=== PATIENT | female | born 2000 | race American Indian/Alaskan Native ===

== ENCOUNTER 2019-07-15 01:50 | Emergency (ER) | payer BC ==
--- NOTE | 2019-07-15 02:25 | Emergency Department Report ---
ED Psych HPI - General Chief Complaint: Psych Stated Complaint: MH Time Seen by Provider: 07/15/19 02:17 Source: EMS Mode of arrival: Stretcher - History of Present Illness Initial Comments: 18 yo F presents to ED via EMS. Per ems, pt's mother stated pt has had uncontrollable behavior x 3 days. Pt taking to self and seeing things that are not there. Pt paranoid thinking someone is trying to kill her. When I ask pt why she is here in the ER, pt states, "They said I'm dying, right?" It is unclear if patient has a prior psychiatric diagnosis. Difficult to obtain hx from pt. Complaint: other (bizarre behavior, paranoia) -: days(s) (3) Quality: constant Improves With: none Worsens With: none Treatments Prior to Arrival: placed on mental he - Related Data Allergies Allergy/AdvReac Type Severity Reaction Status Date / Time No Known Allergies Allergy Unverified 07/15/19 03:45 ED Review of Systems ROS: Stated complaint: MH Other details as noted in HPI Comment: Unobtainable due to pts medical conditions Psychiatric: other (paranoia and bizarrhe behavior reported) ED Past Medical Hx - Past Medical History Previous Medical History?: No - Surgical History Past Surgical History?: No - Social History Smoking Status: Unknown if ever smoked ED Physical Exam - General Limitations: No Limitations General appearance: alert, in no apparent distress - Head Head exam: Present: atraumatic, normocephalic - Eye Eye exam: Present: normal appearance, PERRL, EOMI - ENT ENT exam: Present: mucous membranes moist - Neck Neck exam: Present: normal inspection - Respiratory Respiratory exam: Present: normal lung sounds bilaterally. Absent: respiratory distress - Cardiovascular Cardiovascular Exam: Present: normal rhythm, tachycardia - GI/Abdominal GI/Abdominal exam: Absent: distended - Extremities Exam Extremities exam: Present: normal inspection - Neurological Exam Neurological exam: Present: alert, CN II-XII intact. Absent: motor sensory deficit - Psychiatric Psychiatric exam: Present: manic, other (disorganized speech, ) - Skin Skin exam: Present: warm, dry, intact, normal color ED Course Vital Signs 07/15/19 07/15/19 07/15/19 02:09 02:14 02:15 Temperature 99.9 F H Pulse Rate 117 H Respiratory 18 Rate Blood Pressure 164/105 156/90 Blood Pressure [Left] O2 Sat by Pulse 99 99 100 Oximetry 07/15/19 07/15/19 07/15/19 02:18 02:25 02:30 Temperature Pulse Rate 129 H 108 H Respiratory 17 20 14 Rate Blood Pressure 156/90 Blood Pressure 156/90 [Left] O2 Sat by Pulse 98 99 99 Oximetry 07/15/19 07/15/19 07/15/19 02:45 03:00 03:16 Temperature Pulse Rate 126 H 124 H 152 H Respiratory 19 18 34 H Rate Blood Pressure 154/89 154/89 154/89 Blood Pressure [Left] O2 Sat by Pulse Oximetry 07/15/19 07/15/19 07/15/19 03:30 03:46 04:00 Temperature Pulse Rate 161 H 93 H 139 H Respiratory 15 32 H Rate Blood Pressure 154/89 154/89 154/89 Blood Pressure [Left] O2 Sat by Pulse 92 98 Oximetry 07/15/19 07/15/19 07/15/19 04:16 04:30 04:45 Temperature Pulse Rate 126 H 112 H Respiratory 23 20 Rate Blood Pressure 121/56 121/56 115/56 Blood Pressure [Left] O2 Sat by Pulse 98 98 96 Oximetry 07/15/19 07/15/19 07/15/19 05:00 05:16 05:30 Temperature Pulse Rate 110 H 99 H 117 H Respiratory 22 19 21 Rate Blood Pressure 106/56 115/56 125/67 Blood Pressure [Left] O2 Sat by Pulse 97 97 97 Oximetry 07/15/19 07/15/19 07/15/19 05:45 06:00 07:00 Temperature Pulse Rate 108 H 100 H Respiratory 18 19 Rate Blood Pressure 103/55 106/65 106/67 Blood Pressure [Left] O2 Sat by Pulse 98 98 97 Oximetry 07/15/19 07/15/19 07/15/19 08:00 09:00 09:09 Temperature Pulse Rate 131 H 121 H Respiratory 19 19 19 Rate Blood Pressure 135/82 116/53 Blood Pressure [Left] O2 Sat by Pulse 99 100 97 Oximetry 07/15/19 07/15/19 07/15/19 10:00 11:00 14:36 Temperature Pulse Rate 103 H Respiratory 22 13 19 Rate Blood Pressure 123/76 148/85 Blood Pressure [Left] O2 Sat by Pulse 98 97 Oximetry 07/15/19 15:18 Temperature 97.8 F Pulse Rate 115 H Respiratory 18 Rate Blood Pressure Blood Pressure 143/99 [Left] O2 Sat by Pulse 100 Oximetry - Reevaluation(s) Reevaluation #1: 07/15/19 03:34 Pt screaming, growling, uncooperative, cursing at staff. Chemical restraint ordered. ED Medical Decision Making - Lab Data Result diagrams: 07/15/19 02:29 07/15/19 02:29 - Medical Decision Making Pt w/ new onset acute psychosis. Labs unremarkable. Pt arrived on a 1013. Required chemical restraints due to behavior. Patient is medically clear for mental health assessment. Will dispo per psych. - Differential Diagnosis drug use, schizophrenia, bipolar Critical care attestation.: If time is entered above; I have spent that time in minutes in the direct care of this critically ill patient, excluding procedure time. ED Disposition Clinical Impression: Psychosis Disposition: DC/TX-65 PSY HOSP/PSY UNIT Is pt being admited?: No Condition: Stable Referrals: PRIMARY CARE, [Primary Care Provider] - 3-5 Days
[2019-07-15] MEDS ORDERED: SODIUM CHLORIDE 0.9% 1000 ML 1,000 ML IV ONE (03:10)
[2019-07-15 03:12] LABS: Basophils % (Auto) 0.3 % (0.0-1.8); Eosinophils % (Auto) 0.2 % (0.0-4.3); Hematocrit 41.5 % (30.3-42.9); Hemoglobin 13.9 gm/dl (10.1-14.3); Lymphocytes # (Auto) 1.4 K/mm3 (1.2-5.4); Lymphocytes % (Auto) 20.6 % (13.4-35.0); Mean Corpuscular HGB Conc 34 % (30-34); Mean Corpuscular Volume 84 fl (79-97); Monocytes # (Auto) 0.9 K/mm3 (0.0-0.8); Monocytes % (Auto) 14.1 % (0.0-7.3); Platelet Count 306 K/mm3 (140-440); Red Blood Count 4.95 M/mm3 (3.65-5.03); Red Cell Distribution Width 13.3 % (13.2-15.2)
[2019-07-15] MEDS ORDERED: SODIUM CHLORIDE 0.9% 1000 ML 1,000 ML ONE (03:16)
[2019-07-15] MEDS ORDERED: LORazepam 2 MG/ML VIAL IM ONE ×2 (03:32→14:55)
[2019-07-15] MEDS ORDERED: ZIPRASIDONE MESYLATE 20 MG VIAL IM ONE ×2 (03:32→04:13)
[2019-07-15 03:33] LABS: BUN/Creatinine Ratio 13; Blood Urea Nitrogen 12 mg/dL (7-17); Calcium 10.2 mg/dL (8.4-10.2); Hemolysis Index 12
[2019-07-15 05:59] LABS: Amphetamine Screen,Urine PRESUMPTIVE NEGATIVE; Bacteria,Urine 1+ /HPF (Negative); Benzodiazepines Screen,Urine PRESUMPTIVE NEGATIVE; Bilirubin,Urine NEG (Negative); Blood,Urine NEG (Negative); Cannabinoid Screen,Urine PRESUMPTIVE NEGATIVE; Cocaine Screen,Urine PRESUMPTIVE NEGATIVE; Color,Urine Amber (Yellow); Methadone Screen,Urine PRESUMPTIVE NEGATIVE; Mucus,Urine 3+ /HPF; Opiate Screen,Urine PRESUMPTIVE NEGATIVE
[2019-07-15] MEDS ORDERED: LORazepam 1 MG TAB ONE (14:07)
[2019-07-15] MEDS ORDERED: LORazepam 2 MG/ML VIAL ONE (14:54)
[2019-07-15 18:17] VITALS: BP 143/99
== END 2019-07-15 19:23 ==
LOC: ED 01:50
DX: F29 Unspecified psychosis not due to a substance or known physiological condition (principal)
CPT/HCPCS: 36415; 80048; 80307; 81001; 84703; 85025; 96372; 99285; J2060; J3486; J7030; 80320; G0480

== ENCOUNTER 2020-06-30 19:11 | Emergency (ER) | payer BC ==
[2020-06-30] MEDS ORDERED: ZIPRASIDONE MESYLATE 20 MG VIAL IM ONE (21:01)
[2020-06-30] MEDS ORDERED: WATER FOR INJ Sterile (PF) 10 ML ONE (21:01)
--- NOTE | 2020-06-30 21:15 | Emergency Department Report ---
<MICHAEL PIERRE - Last Filed: 06/30/20 21:12> ED Psych HPI - General Stated Complaint: SUICIDAL Time Seen by Provider: 06/30/20 20:39 - History of Present Illness Initial Comments: Patient is 19 years old female with history of schizophrenia. Patient presented to the ER with a chief complaint of suicidal ideation. Patient stated that she is planning to cut her wrist. Patient is very agitated and screaming patient have to be secluded for safety. Patient given Geodon for chemical restraint. Patient refused to communicate at this moment. MD Complaint: suicidal ideation, altered mental status -: days(s) Associated Psychiatric Symptoms: suicidal ideation, racing thoughts, auditory hallucinations Associated Symptoms: denies other symptoms If Self Harm: admits thoughts of, has plan, self-inflicted trauma - Related Data Home Medications Medication Instructions Recorded Confirmed Last Taken Benztropine [Cogentin] 0.5 mg PO BID 06/30/20 06/30/20 Unknown Citalopram [celeXA] 10 mg PO QDAY 06/30/20 06/30/20 Unknown Citalopram [celeXA] 10 mg PO QDAY 06/30/20 06/30/20 Unknown lamoTRIgine [LaMICtal Odt] 200 mg PO QDAY 06/30/20 06/30/20 Unknown risperiDONE [RisperDAL] 3 mg PO QHS 06/30/20 06/30/20 Unknown Allergies Allergy/AdvReac Type Severity Reaction Status Date / Time No Known Allergies Allergy Unverified 07/15/19 03:45 ED Review of Systems Comment: Unobtainable due to pts medical conditions ED Past Medical Hx - Social History Smoking Status: Unknown if ever smoked - Medications Home Medications: Home Medications Medication Instructions Recorded Confirmed Last Taken Type Benztropine [Cogentin] 0.5 mg PO BID 06/30/20 06/30/20 Unknown History Citalopram [celeXA] 10 mg PO QDAY 06/30/20 06/30/20 Unknown History Citalopram [celeXA] 10 mg PO QDAY 06/30/20 06/30/20 Unknown History lamoTRIgine [LaMICtal Odt] 200 mg PO QDAY 06/30/20 06/30/20 Unknown History risperiDONE [RisperDAL] 3 mg PO QHS 06/30/20 06/30/20 Unknown History ED Physical Exam - General General appearance: alert, anxious, other (Agitated.) - Head Head exam: Present: atraumatic, normocephalic, normal inspection - Eye Eye exam: Present: normal appearance - ENT ENT exam: Present: normal exam, normal orophraynx, mucous membranes moist - Neck Neck exam: Present: normal inspection. Absent: tenderness, meningismus - Respiratory Respiratory exam: Present: normal lung sounds bilaterally - Cardiovascular Cardiovascular Exam: Present: regular rate, normal rhythm, normal heart sounds - GI/Abdominal GI/Abdominal exam: Present: soft, normal bowel sounds. Absent: distended, tenderness, guarding, rebound, rigid, organomegaly, mass, bruit, pulsatile mass, hernia - Extremities Exam Extremities exam: Present: normal inspection, full ROM, normal capillary refill. Absent: pedal edema, calf tenderness - Back Exam Back exam: Present: normal inspection, full ROM. Absent: CVA tenderness (R), CVA tenderness (L) - Neurological Exam Neurological exam: Present: alert, oriented X3 - Psychiatric Psychiatric exam: Present: agitated, manic, suicidal ideation - Skin Skin exam: Present: warm, intact, normal color ED Disposition Clinical Impression: Schizophrenia, Acute psychosis Disposition: DC/TX-70 ANOTHER TYPE HLTHCARE Condition: Stable Referrals: PRIMARY CARE,MD [Primary Care Provider] - 3-5 Days <LEIDA MEZA - Last Filed: 07/02/20 20:03> ED Review of Systems ROS: Stated complaint: SUICIDAL Other details as noted in HPI ED Course Vital Signs 06/30/20 07/01/20 07/01/20 20:00 05:40 09:27 Temperature 99.3 F 98.1 F 98.2 F Pulse Rate 109 H 72 95 H Respiratory 18 18 20 Rate Blood Pressure 150/73 151/72 159/89 [Left] O2 Sat by Pulse 98 99 100 Oximetry 07/01/20 07/02/20 20:58 02:14 Temperature 97.3 F L 98 F Pulse Rate 94 H 74 Respiratory 18 18 Rate Blood Pressure 146/99 145/82 [Left] O2 Sat by Pulse 100 Oximetry ED Medical Decision Making - Lab Data Result diagrams: 06/30/20 21:25 06/30/20 21:25 - Medical Decision Making I was asked by mental health laborer to complete 1013 form. I agree with treatment plan. Patient transferred to [facility] Critical care attestation.: If time is entered above; I have spent that time in minutes in the direct care of this critically ill patient, excluding procedure time. ED Disposition Is pt being admited?: No Does the pt Need Aspirin: No
[2020-06-30 21:32] LABS: Amphetamine Screen,Urine Negative; Benzodiazepines Screen,Urine Negative; Cocaine Screen,Urine Negative; Methadone Screen,Urine Negative; Opiate Screen,Urine Negative
[2020-06-30 21:40] LABS: Bacteria,Urine 1+ /HPF (Negative); Bilirubin,Urine NEG (Negative); Blood,Urine NEG (Negative); Color,Urine Amber (Yellow); Mucus,Urine 3+ /HPF; Urobilinogen,Urine < 2.0 mg/dL (<2.0)
[2020-06-30 21:47] LABS: Cannabinoid Screen,Urine Positive
[2020-06-30 21:47] LABS: Basophils % (Auto) 0.4 % (0.0-1.8); Eosinophils # (Auto) 0.1 K/mm3 (0.0-0.4); Eosinophils % (Auto) 1.4 % (0.0-4.3); Hematocrit 33.5 % (30.3-42.9); Lymphocytes # (Auto) 2.2 K/mm3 (1.2-5.4); Mean Corpuscular HGB Conc 33 % (30-34); Mean Corpuscular Volume 81 fl (79-97); Monocytes # (Auto) 0.8 K/mm3 (0.0-0.8); Monocytes % (Auto) 13.2 % (0.0-7.3); Platelet Count 312 K/mm3 (140-440); Red Blood Count 4.12 M/mm3 (3.65-5.03); Red Cell Distribution Width 17.4 % (13.2-15.2)
[2020-06-30 22:07] LABS: BUN/Creatinine Ratio 14; Blood Urea Nitrogen 13 mg/dL (7-17); Calcium 9.2 mg/dL (8.4-10.2); Hemolysis Index 3
[2020-07-01] MEDS ORDERED: HALOPERIDOL LACTATE 5 MG/1 ML INJ IM ONE (00:51)
[2020-07-01] MEDS ORDERED: LORazepam 2 MG/ML VIAL IV ONE ×2 (00:51→15:34)
[2020-07-01] MEDS ORDERED: ALPRAZolam 1 MG TAB PO ONE (09:03)
--- NOTE | 2020-07-01 09:23 | Consultation ---
History of Present Illness - Reason for Consult Consult date: 07/01/20 Reason for consult: MHE Requesting physician: MICHAEL PIERRE - History of Present Psychiatric Illness Per ED Provider: Patient is 19 years old female with history of schizophrenia. Patient presented to the ER with a chief complaint of suicidal ideation. Patient stated that she is planning to cut her wrist. Patient is very agitated and screaming patient have to be secluded for safety. Patient given Geodon for chemical restraint. Patient refused to communicate at this moment. PSYCH HPI Patient seen in seclusion, half naked, surrounded by security, reports patient phsycially attacking staff and calling names, loud, hyperverbal and restless, attempt to approach patient but she called me a "bitch" REVIEW OF SYSTEMS ROS cannot be reliably obtained from the patient due to her mental status MENTAL STATUS EXAMINATION General Appearance and Behavior: Age appropriate, good hygiene, wearing appropriate clothes, poor eye contact, cooperativeirritable with questioning. Cooperation: Hostile and Guarded Psychomotor Behavior: Psychomotor agitation Mood: so-so Affect and affective range: Angry, dysthymic, Thought Process:Circumstantial, Illogical, Thought Content: Obsessions, Hallucinations including auditory, visual, Paranoid Speech: difficulty to understand, confused and blocking Intellectual Functioning: fair Suicidal Ideation: Homicidal Ideation: Impulse Control: Impaired Insight and Judgment: Impaired Memory: Short term memory impaired, Attention: Divided attention impaired Orientation: Alert, oriented Assessment and Plan - Psychiatric problem (1) Schizophrenia Current Visit: Yes Status: Acute Treatment Plan MEDICATIONS: Risks, benefits and alternatives of medications discussed with the patient, questions answered and consent obtained from patient. PSYCHOTHERAPY: Supportive psychotherapy provided MEDICAL: Per primary team DELIRIUM PRECAUTIONS: Please re-orient patient frequently, keep lights on during the day, and minimize benzodiazepines and opiates as these medications could worsen patient's confusion. 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 Case discussed with Dr. Paul who agrees with current disposition LEGAL STATUS: 1013 FOLLOW-UP: Will follow Thank you for the consult. Please contact with any questions and/or concerns. Medications and Allergies Allergies Allergy/AdvReac Type Severity Reaction Status Date / Time No Known Allergies Allergy Unverified 07/15/19 03:45 Home Medications Medication Instructions Recorded Confirmed Last Taken Type Benztropine [Cogentin] 0.5 mg PO BID 06/30/20 06/30/20 Unknown History Citalopram [celeXA] 10 mg PO QDAY 06/30/20 06/30/20 Unknown History Citalopram [celeXA] 10 mg PO QDAY 06/30/20 06/30/20 Unknown History lamoTRIgine [LaMICtal Odt] 200 mg PO QDAY 06/30/20 06/30/20 Unknown History risperiDONE [RisperDAL] 3 mg PO QHS 06/30/20 06/30/20 Unknown History Mental Status Exam - Vital signs Last Vital Signs Temp 98.1 F 07/01/20 05:40 Pulse 72 07/01/20 05:40 Resp 18 07/01/20 05:40 BP 151/72 07/01/20 05:40 Pulse Ox 99 07/01/20 05:40 Results Result Diagrams: 06/30/20 21:25 06/30/20 21:25 Abnormal lab results 06/30/20 06/30/20 06/30/20 Range/Units 20:55 21:25 21:25 MCH 27 L (28-32) pg RDW 17.4 H (13.2-15.2) % [place] % (Auto) 13.2 H (0.0-7.3) % Glucose 115 H (65-100) mg/dL U Epithel Cells (Auto) 124.0 H (0-13.0) /HPF Salicylates (2.8-20.0) mg/dL Acetaminophen (10.0-30.0) ug/mL 06/30/20 06/30/20 Range/Units 21:25 21:25 MCH (28-32) pg RDW (13.2-15.2) % [place] % (Auto) (0.0-7.3) % Glucose (65-100) mg/dL U Epithel Cells (Auto) (0-13.0) /HPF Salicylates < 0.3 L (2.8-20.0) mg/dL Acetaminophen 5.0 L (10.0-30.0) ug/mL All other labs normal. Assessment and Plan - Psychiatric problem (1) Schizophrenia Current Visit: Yes Status: Acute
[2020-07-01] MEDS ORDERED: ZIPRASIDONE MESYLATE 20 MG VIAL IM ONE ×3 (10:04→10:20)
[2020-07-01] MEDS ORDERED: WATER FOR INJ Sterile (PF) 10 ML ONE (10:04)
[2020-07-01] MEDS ORDERED: MAGNESIUM HYDROXIDE (MOM) ORAL LIQD UDC PO PRN (10:14)
[2020-07-01] MEDS ORDERED: ALUM-MAG HYDROXIDE-SIMETHICONE 200-200-20MG/5ML ORAL LIQD 30 ML PO PRN (10:14)
[2020-07-01] MEDS ORDERED: ACETAMINOPHEN 325 MG TAB PO PRN (10:14)
--- NOTE | 2020-07-01 10:20 | Event Note ---
S: " Leave her alone." O: Patient is screaming. She has banging on wall. She is in seclusion room. Stable vital signs throughout ED encounter A: Acute psychosis, reported suicidal ideation, history of schizophrenia P: Seclusion order, stat Geodon for sedation, awaiting recommendations from psychiatric team.
[2020-07-01] MEDS: HALOPERIDOL 2 MG TAB PO SCH ×2 (14:59→22:14)
[2020-07-01] MEDS ORDERED: LORazepam 2 MG/ML VIAL IM PRN (15:13)
[2020-07-02 02:14] VITALS: BP 145/82
== END 2020-07-02 02:27 | disposition other institution (70) ==
LOC: EEVIPCON 19:11 → ED 19:11
DX: F23 Brief psychotic disorder (principal); Z79.899 Other long term (current) drug therapy; Z20.822 Contact with and (suspected) exposure to COVID-19
CPT/HCPCS: 36415; 80048; 80307; 81001; 84703; 85025; 96372; 96374; 96375; 99285; J1630; J2060; J3486; U0003; 80320; G0480